=== PATIENT | male | born 1990 | race African-American/Black ===

== ENCOUNTER 2017-06-27 12:42 | Emergency (ER) | payer SELFPAY ==
[~2017-06-27] VITALS: Ht 170.2 cm; Wt 64.7 kg
[2017-06-27] MEDS ORDERED: KEFLEX500 MG PO (14:44)
[2017-06-27 15:13] VITALS: BP 115/79
== END 2017-06-27 15:13 | disposition home or self-care (01) ==
LOC: EME 12:42
DX: L03.114 Cellulitis of left upper limb (principal); F17.200 Nicotine dependence, unspecified, uncomplicated
CPT/HCPCS: 99281; 99284